=== PATIENT | male | born 1940 | race Caucasian/White ===

== ENCOUNTER 2018-01-28 09:23 | Emergency (ER) | payer MEDICARE, OTHER ==
[~2018-01-28] VITALS: Ht 185.4 cm; Wt 91.0 kg
[2018-01-28] MEDS ORDERED: TORADOL PO (11:08)
[2018-01-28 11:15] VITALS: BP 118/74
== END 2018-01-28 11:15 | disposition home or self-care (01) ==
LOC: ED 09:23
DX: S46.211A Strain of muscle, fascia and tendon of other parts of biceps, right arm, initial encounter (principal); M19.011 Primary osteoarthritis, right shoulder; I10 Essential (primary) hypertension; I48.91 Unspecified atrial fibrillation; E78.5 Hyperlipidemia, unspecified; X50.0XXA Overexertion from strenuous movement or load, initial encounter; Y93.54 Activity, bowling; M79.601 Pain in right arm; M79.89 Other specified soft tissue disorders

== ENCOUNTER 2020-04-15 10:53 | Emergency (ER) | payer MEDICARE, OTHER ==
[~2020-04-15] VITALS: Ht 185.4 cm; Wt 93.2 kg
[~2020-04-15 10:53] MED LIST: TORADOL PO
[2020-04-15] MEDS ORDERED: LIPITOR20 MG PO (11:29)
[2020-04-15] MEDS ORDERED: AMIODARONE200 MG PO (11:29)
[2020-04-15] MEDS ORDERED: LISINOPRIL5 MG PO (11:29)
[2020-04-15] MEDS ORDERED: ASPIRIN ENTERIC81 MG PO (11:30)
[2020-04-15] MEDS ORDERED: KEFLEX500 M1 PO (12:16)
[2020-04-15 12:20] VITALS: BP 116/62
== END 2020-04-15 12:24 | disposition home or self-care (01) ==
LOC: ED 10:53
DX: L02.212 Cutaneous abscess of back [any part, except buttock and flank] (principal); I10 Essential (primary) hypertension; I48.91 Unspecified atrial fibrillation; E78.5 Hyperlipidemia, unspecified